=== PATIENT | female | born 1990 | race Caucasian/White ===

== ENCOUNTER 2022-06-26 20:15 | Inpatient (IN) | payer OTHER ==
[2022-06-26] MEDS ORDERED: PROMETHAZINE HCL 25 MG/1 ML VIAL IVPUSH ONE (21:15)
[2022-06-26] MEDS ORDERED: DEXTROSE 5%-LACTATED RINGERS 1,000 ML IV SCH (21:15)
[2022-06-26 21:45] VITALS: BMI 32.7
[2022-06-26 21:54] LABS: BASO % 0.1 % (0-2.0); EOS % 0.3 % (0-4.5); LYMPH % 16.4 % (8-40); MCH 29.7 pg (25.7-33.7); MCHC 34.1 g/dl (32.0-36.0); MEAN PLT VOLUME 7.8 fl (7.5-11.1); MONO % 5.9 % (3.8-10.2); NEUT % 77.3 % (42.8-82.8); PLATELET COUNT 267 10^3/uL (134-434); RBC 4.37 M/mm3 (3.60-5.2); RDW 14.3 % (11.6-15.6); WHITE BLOOD COUNT 12.2 K/mm3 (4.0-10.0)
[2022-06-26] MEDS ORDERED: PROMETHAZINE HCL 25 MG/1 ML VIAL ONE (22:05)
[2022-06-26] MEDS ORDERED: BUTORPHANOL TARTRATE 2 MG/ML VIAL ONE (22:05)
[2022-06-26 22:09] LABS: CALCIUM 9.2 mg/dL (8.5-10.1)
[2022-06-26 22:10] LABS: BLOOD UREA NITROGEN 5.4 mg/dL (7-18)
[2022-06-26 22:13] LABS: CREATININE 0.6 mg/dL (0.55-1.3)
[2022-06-26] MEDS ORDERED: BUTORPHANOL TARTRATE 1 MG/ML VIAL IVPB ONE (22:15)
[2022-06-26 22:21] LABS: INR 0.96 (0.83-1.09)
[2022-06-27] MEDS ORDERED: BUTORPHANOL TARTRATE 1 MG/ML VIAL IVPB ONE (00:30)
[2022-06-27] MEDS ORDERED: FENTANYL/BUPIVACAINE/NS/PF - PCEA - 50 ML DISP.SYRIN EP ONE ×5 (03:40→18:35)
[2022-06-27] MEDS ORDERED: FENTANYL CITRATE/PF 50 MCG/ML VIAL ONE ×3 (04:04→18:11)
[2022-06-27] MEDS ORDERED: NALOXONE HCL 0.4 MG/ML VIAL IVPUSH PRN (04:41)
[2022-06-27] MEDS ORDERED: FENTANYL/BUPIVACAINE/NS/PF - PCEA - 50 ML DISP.SYRIN EP SCH (04:45)
[2022-06-27] MEDS ORDERED: BUPIVACAINE HCL/PF 0.25% (2.5MG/ML) 10 ML VIAL ONE ×2 (05:30→18:11)
[2022-06-27] MEDS ORDERED: AMPICILLIN SODIUM 2 GM VIAL ONE (07:50)
[2022-06-27] MEDS ORDERED: AMPICILLIN - 2 GM in SODIUM CHLORIDE 100 ML IVPB ONE (07:50)
[2022-06-27] MEDS ORDERED: ACETAMINOPHEN INJECTION 100 ML IVPB ONE (08:31)
[2022-06-27] MEDS ORDERED: ACETAMINOPHEN 1000 MG/100 ML BAG IVPB ONE (10:00)
[2022-06-27] MEDS ORDERED: AMPICILLIN SODIUM 1 GM VIAL ONE ×3 (11:48→20:06)
[2022-06-27] MEDS: AMPICILLIN - 1 GM in SODIUM CHLORIDE 100 ML IVPB SCH ×3 (11:52→20:10)
[2022-06-27] MEDS: OXYTOCIN 30 UNITS in 0.9% NS 30 UNIT/500 ML INFUS.BAG IVPB SCH (13:35)
[2022-06-27] MEDS ORDERED: LIDOCAINE HCL 1% PRESERVATIVE FREE - 30ML VIAL ONE (20:23)
[2022-06-27] MEDS ORDERED: OXYTOCIN 20 UNITS in 0.9% NS 20 UNIT/1,000 ML INFUS.BAG IV ONE (21:23)
[2022-06-27] MEDS ORDERED: BISACODYL 10 MG SUPP.RECT RC PRN (22:04)
[2022-06-27] MEDS ORDERED: BENZOCAINE 28 GM HEMORRHOIDAL OINTMENT TP PRN (22:04)
[2022-06-27] MEDS ORDERED: oxyCODONE HCL 5 MG TABLET PO PRN (22:04)
[2022-06-27] MEDS ORDERED: ACETAMINOPHEN 325 MG TABLET (FP) PO PRN (22:04)
[2022-06-27] MEDS ORDERED: BENZOCAINE 20% 57 GM BOTTLE TP PRN (22:04)
[2022-06-27] MEDS ORDERED: WITCH HAZEL 50% (TUCKS) 40 PAD/JAR PAD TP PRN (22:04)
[2022-06-27] MEDS ORDERED: METHYLERGONOVINE MALEATE 0.2 MG/1 ML AMP IM PRN (22:04)
[2022-06-27] MEDS ORDERED: OXYTOCIN 20 UNITS in 0.9% NS 20 UNIT/1,000 ML INFUS.BAG IV SCH (22:15)
[2022-06-28] MEDS: IBUPROFEN 600 MG TABLET (FP) PO PRN ×3 (00:52→18:11)
[2022-06-28] MEDS: AMPICILLIN - 1 GM in SODIUM CHLORIDE 100 ML IVPB SCH (00:53)
[2022-06-28 09:28] LABS: HEMOGLOBIN 12.2 GM/dL (10.7-15.3); MCH 29.6 pg (25.7-33.7); MCHC 33.9 g/dl (32.0-36.0); MEAN CELL VOLUME 87.5 fl (80-96); MEAN PLT VOLUME 8.8 fl (7.5-11.1); RBC 4.12 M/mm3 (3.60-5.2); RDW 14.4 % (11.6-15.6); WHITE BLOOD COUNT 25.4 K/mm3 (4.0-10.0)
[2022-06-28 09:30] LABS: PLATELET COUNT 224 10^3/uL (134-434)
[2022-06-28] MEDS: PRENATAL VITAMINS W/ FOLIC ACID TABLET (FP) PO SCH (09:46)
[2022-06-28 10:40] LABS: ANISOCYTOSIS 1+; MACROCYTOSIS 0; OVALOCYTE 1+
[2022-06-28] MEDS ORDERED: SENNOSIDES/DOCUSATE COMBO (SENNA PLUS) TABLET (UD) PO PRN (22:00)
[2022-06-29] MEDS: PRENATAL VITAMINS W/ FOLIC ACID TABLET (FP) PO SCH (09:15)
[2022-06-29] MEDS: IBUPROFEN 600 MG TABLET (FP) PO PRN (09:15)
[2022-06-29 09:44] LABS: HEMATOCRIT 28.5 % (32.4-45.2); HEMOGLOBIN 9.8 GM/dL (10.7-15.3); MCH 29.9 pg (25.7-33.7); MCHC 34.3 g/dl (32.0-36.0); MEAN CELL VOLUME 87.2 fl (80-96); MEAN PLT VOLUME 9.2 fl (7.5-11.1); PLATELET COUNT 263 10^3/uL (134-434); RBC 3.27 M/mm3 (3.60-5.2); RDW 14.9 % (11.6-15.6); WHITE BLOOD COUNT 17.1 K/mm3 (4.0-10.0)
[2022-06-29 10:19] VITALS: BP 109/66; PULSE 89; RESP 17; TEMP 97.7
== END 2022-06-29 13:10 | disposition home or self-care (01) | DRG 807 ==
LOC: JLDR 20:15 → J3W 06-28 00:06
PROVIDERS: ADMIT Obstetrics & Gynecology; ATTEND Obstetrics & Gynecology
PROC: 10E0XZZ Delivery of Products of Conception, External Approach (ICD-10-PCS; principal; 2022-06-27)
PROC: 0W8NXZZ Division of Female Perineum, External Approach (ICD-10-PCS; 2022-06-27)
DX: O80 Encounter for full-term uncomplicated delivery (principal); Z37.0 Single live birth; Z3A.39 39 weeks gestation of pregnancy
CPT/HCPCS: 36415; 59409; 80048; 85025; 85027; 85610; 85730; 86780; 86850; 86900; 86901; C9803-CS; U0003; U0005